=== PATIENT | male | born 1930 | race Caucasian/White ===

== ENCOUNTER 2016-12-13 11:13 | Inpatient (IN) | payer MEDICARE, OTHER ==
[~2016-12-13] VITALS: Ht 175.3 cm; Wt 88.7 kg
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
--- NOTE | ~2016-12-13 | CN ---
Consultation Report [facility] [address] [place]. [address] NAME: KLARISSA BRAVO : 31 STATUS : ADM IN PAT#: [id number] AGE: 86 ADM/REG DATE : 12/13/16 MR#: [id number] REPORT SERV DATE: 12/14/16 DICTATED BY: GEORGE SOLARES DATE: 12/13/16 REPORT STATUS : Draft TRANSCRIBED BY: SANTIAGO DATE: 12/13/16 INFECTIOUS DISEASE CONSULT DATE OF CONSULTATION: REASON FOR REFERRAL: Evaluation and treatment of possible leg cellulitis. HISTORY OF PRESENT ILLNESS: The patient is an 86-year-old male. He has a past medical history of atrial fibrillation, for which he is on chronic Coumadin. He has past arrhythmias, an AICD, coronary artery disease, congestive heart failure, hypertension, and hyperlipidemia. He bumped his left calf on a trailer hitch about two weeks ago. He said there was a small break in the skin. He had severe bruising, it began to swell and really turn red. He saw a local physician who gave him a dose of Rocephin and then started on cefuroxime which he is still on. 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 He is not having fevers, chills, malaise, or flu-like symptoms. He has not been draining purulent material. There are only two small abrasions on it. There has been no other trauma. No unusual environmental exposures. PAST MEDICAL HISTORY: Otherwise unremarkable. MEDICATIONS: As described above. ALLERGIES: HE IS ALLERGIC TO PENICILLIN, WHICH CAUSES A RASH. 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 He is . Nonsmoker. No history of alcohol or substance abuse. FAMILY HISTORY: Noncontributory. PHYSICAL EXAMINATION: GENERAL: Nontoxic, elderly male, in no acute distress. Alert and oriented x3. VITAL SIGNS: Temperature 98.6, pulse 67, respirations 18, blood pressure 130/66, and weight 195 pounds. HEENT: Sclerae clear. No oral lesions. NECK: Supple without lymphadenopathy. LUNGS: Clear. HEART: Regular. ABDOMEN: Soft, nontender. Positive bowel sounds. EXTREMITIES: The left calf is swollen, erythematous, some purplish discoloration with just two small shallow abrasions. It is more firm and indurated. It is slightly warm and difficult to tell whether it is simply hematoma or cellulitis. No other extremity skin or soft tissue lesions are noted. Consultation Report [facility] [address] [place]. [address] NAME: KLARISSA BRAVO : 32 STATUS : ADM IN PAT#: [id number] AGE: 86 ADM/REG DATE : 12/13/16 MR#: [id number] REPORT SERV DATE: 12/14/16 DICTATED BY: GEORGE SOLARES DATE: 12/13/16 REPORT STATUS : Draft TRANSCRIBED BY: SANTIAGO DATE: 12/13/16 LABORATORY DATA: His CBC shows a white blood cell count of 6.1, hematocrit 40.7, and platelets 211. BUN and creatinine 21 and 1.17. IMPRESSION: As stated earlier, this could seem to be a hematoma without any infection. I doubt if there is an abscess or deep infection. He has been evaluated for that now by Dr. Espino of Surgery. RECOMMENDATIONS: 1. We will cover with just Ancef now. 2. I think the most important thing is bedrest to help get the swelling down quicker and it will be easier to ascertain what is going on. Finally, I will follow the patient with you. I appreciate very much your consulting on this patient. JONATHAN George Solares M.D. / [id number] CC: Michael Mohan Jr, MD
--- NOTE | ~2016-12-13 | DS ---
Discharge Summary [facility] [address] [place]. [address] NAME: KLARISSA BRYANT : 32 STATUS : DIS IN PAT#: [id number] AGE: 86 ADM/REG DATE : 12/13/16 MR#: [id number] REPORT SERV DATE: 12/16/16 DICTATED BY: Vane BOWMAN DATE: 12/15/16 REPORT STATUS : Draft TRANSCRIBED BY: MODL DATE: 12/15/16 ADMISSION DATE: 12/13/2016 DISCHARGE DATE: 12/15/2016 The patient was admitted to the Hospitalist Service. CONSULTANTS: Dr. Lalit Gomez, Infectious Disease; Dr. Thor Espino, General Surgery; and Wound Care. DISCHARGE DIAGNOSES: 1. Left lower extremity cellulitis with left lower extremity wound. 2. Chronic atrial fibrillation, on chronic warfarin. 3. Chronic systolic heart failure and ischemic cardiomyopathy. 4. Obstructive sleep apnea. 5. Gastroesophageal reflux disease. 6. Benign prostatic hyperplasia. PROCEDURES: On 12/15/2011, the patient underwent a debridement of the ulceration on his left lower extremity per Dr. Grigsby. IMAGING AND DIAGNOSTICS: 1. On 12/13/2016, left lower extremity CT scan without contrast revealed diffuse edema or inflammation within the subcu fat. No soft tissue fluid collections are identified. Calcified atherosclerosis and no evidence of acute left tibia/fibula abnormality. 2. On 12/13/2016, x-ray of the left leg reveals no evidence of acute left tibia/fibula abnormality. 3. On 12/14/2016, arterial duplex of bilateral lower extremities, no evidence of any high- grade arterial stenosis suggested by this exam, no evidence of arterial occlusion to lower extremities demonstrated by this exam. 4. 12/14/2016, venous reflux study revealed some minimal trace reflux in the common femoral veins bilaterally. The remainder of the exam demonstrates no DVT, no incompetent perforators, no significant reflux. Right superficial system has been removed with regard to the greater saphenous vein. Short saphenous vein not visualized. 5. Wound culture, left lower extremity, showed no growth at two days. 6. Blood culture x2 showed no growth at one day. DISCHARGE LABS: 1. On 12/15/2016, basic metabolic panel revealed a sodium of 141, potassium 4.2, chloride 104, BUN 24, creatinine 1.12. GFR 69. Glucose 106. Calcium 9.1, magnesium 2.2. 2. Discharge CBC revealed a white count of 4.9, hemoglobin 12.5 hematocrit 39.1, platelets 201,000. INR 1.6. 3. A 12-lead EKG in the emergency room showed an atrial rhythm is atrial fibrillation, ventricular paced rhythm, abnormal EKG. When compared with EKG of 11/26/2015, no significant changes. Discharge Summary [address] [address] NAME: KLARISSA BRYANT : 32 STATUS : DIS IN PAT#: [id number] AGE: 86 ADM/REG DATE : 12/13/16 MR#: [id number] REPORT SERV DATE: 12/16/16 DICTATED BY: Vane BOWMAN DATE: 12/15/16 REPORT STATUS : Draft TRANSCRIBED BY: SANTIAGO DATE: 12/15/16 HISTORY OF PRESENT ILLNESS: For complete history, please refer to admission H and P by Dr. Xenia Carrillo. Briefly, Mr. Bryant is a pleasant 86-year-old man, who presented to the emergency room with complaints of pain, swelling, and redness in his left lower extremity. He states, a couple weeks ago, he hit his left leg on a trailer. He went to see a nurse practitioner in [place], [place], and they provided him with a prescription for some cefuroxime and he took it for seven days. However, his leg continued to cause him discomfort along with redness and swelling and two small areas of open ulcerations, weeping yellowish drainage. He was admitted to the Hospitalist Service for further evaluation and treatment. HOSPITAL COURSE: Mr. Bryant was admitted to cardiac telemetry floor on . Consults were placed to Infectious Disease and General Surgery. He was placed on bed rest with lower extremity leg elevation. He was provided with his home medications. Laboratory studies were ordered. Initially, CT scan of his left lower extremity along with venous Doppler studies were ordered. Please note that there was no DVT either in the left lower extremity. He was placed on cefepime IV as well as vancomycin IV for his draining wound. He was seen in consultation by Dr. Gomez, Infectious Disease, on his date of admission. He was also seen in consultation on the same day by Dr. Hira Espino. On the same day, Dr. Espino performed a debridement of the left lower extremity ulceration. I initially saw the patient on 12/14/2016. He was in no acute distress. Vital signs were stable. He did complain of some left lower extremity pain; however, since his admission, he reported that his swelling and redness had improved with elevation. On the morning of 12/15/2016, I again saw the patient, he was in no acute distress, stated he felt better. His was at his bedside. They both agreed that his left leg looked much better since admission. Dr. Gomez saw the patient earlier this morning and stated that he was fine with the patient going home on oral antibiotic. The patient's vital signs were stable. He was afebrile. Blood pressure 140/66, heart rate 69. He was in a paced rhythm per phototypesetting equipment monitor. He did have a trace of left ankle edema. His wound culture showed no growth at two days. Dr. Grigsby did see the patient later in the afternoon and agreed that he could be discharged home safely with home health care for wound care. Therefore, on the late afternoon of 12/15/2016, Mr. Bryant was discharged home in stable condition. Prior to his discharge, however, he did receive 4 mg of warfarin for his subtherapeutic INR of 1.6. DISCHARGE INSTRUCTIONS: 1. Diet: As tolerated. 2. Activity: We have asked Mr. Bryant to elevate his legs whenever in a sitting or recumbent position. 3. Discharge Medications:. a. Combigan ophthalmic eye drops one drop left eye twice a day. b. Carvedilol 3.125 mg p.o. b.i.d. c. Proscar 5 mg p.o. daily at bedtime. d. Lasix 40 mg p.o. daily. e. Nexium 20 mg p.o. daily in the morning. f. Flomax 0.4 mg p.o. daily at bedtime. g. Silvadene cream to his left lower extremity daily. h. Coumadin, again he is taking 4 mg today on 12/15/2016, and we will resume his home dose Coumadin 3 mg p.o. daily starting tomorrow. Discharge Summary [facility] [id number] [facility] [place] [address] NAME: KLARISSA BRYANT : 32 STATUS : DIS IN PAT#: [id number] AGE: 86 ADM/REG DATE : 12/13/16 MR#: [id number] REPORT SERV DATE: 12/16/16 DICTATED BY: Vane BOWMAN DATE: 12/15/16 REPORT STATUS : Draft TRANSCRIBED BY: SANTIAGO DATE: 12/15/16 i. Potassium 20 mEq p.o. daily. j. Travatan eye drops one drop in left eye daily. k. Nitroglycerin 0.4 mg p.o. p.r.n. chest pain. l. CoQ10 one tablet p.o. daily. m. Vitamin B12 one tablet p.o. daily. n. Tylenol one tablet p.o. p.r.n. o. Prescription for Septra DS one p.o. b.i.d. x7 days. Other discharge instructions include, Mr. Bryant will have home health care for wound care. They will apply a thin coat of Silvadene cream to the left leg daily. Thin coat from his entire ayala from knee to ankle. Acticoat will be placed on ulcers on his left lower extremity and the entire leg will be wrapped with Kerlix and keep his legs elevated as much as possible. Mr. Bryant will follow up with his new primary care provider, Dr. Bullock on 01/04/2017 at 9:45. He will also follow up with Dr. Grigsby in the Wound Center on 01/29/2017 at 1 p.m., and again he will have [facility] for wound care. In addition, Mr. Bryant has a previously arranged appointment to see Dr. Grajeda on Tuesday. He will have his INR checked at this office visit. My collaborating physician on this patient was Dr. Kvng Bowman. JOANN/SANTIAGO SIXTO Lugo Vane Bowman M.D. / [id number] CC: Kalyn Calabrese M.D. Robert Barnett III, M.D.
--- NOTE | ~2016-12-13 | OP ---
Record Of Operation [facility] [address] [place]. [address] NAME: KLARISSA BRAVO : 32 STATUS : ADM IN PAT#: [id number] AGE: 86 ADM/REG DATE : 12/13/16 MR#: [id number] REPORT SERV DATE: 12/14/16 DICTATED BY: VALENTINE ESPINO III DATE: 12/13/16 REPORT STATUS : Draft TRANSCRIBED BY: MODL DATE: 12/13/16 DATE OF PROCEDURE: PROCEDURE: Debridement of ulceration, left lower extremity. PREOPERATIVE DIAGNOSIS: Trauma with ulcerations and cellulitis of left lower extremity. POSTOPERATIVE DIAGNOSIS: Trauma with ulcerations and cellulitis of left lower extremity. ANESTHESIA: 2% lidocaine jelly. The time-out was performed and procedure concluded without difficulty. The patient was prepped in routine fashion with povidone iodine and the area of ulcerations in the upper and lower left extremity lateral aspect just lateral to the ayala was approached and a pickup and scissors used to carefully debride the tissues and the superficial ulcerations. No pus was encountered, and the slough was fairly thick and white to yellowish color. Swab cultures were obtained by inserting the slough into the culture tube along with the culture swab. This was done with two different cultures combining the two different ulcer sloughs. The postop dimension of the upper ulcer was 1.9 x 0.8 x 0.1 depth. The lower ulcer was 1.8 x 1.2 with a 0.1 depth. Culture and sensitivity ordered for aerobic and fungal analysis with sensitivities as indicated. We will continue with therapy on the patient with Silvadene cream to the leg topically and Acticoat to the individual ulcerations with elevation and gentle Kerlix wrapping. RB/SANTIAGO Valentine Espino III, M.D. / [id number] CC: Michael Mohan Jr, MD
[~2016-12-13 11:13] MED LIST: ACIPHEX PO; ANTIVERT PO; ASAB PO; AZOPT OPH; B12250T PO; C1 PO; C25 PO; C5 PO; CO Q-1050 MG PO; CO Q-1075 MG PO; COMBIGAN; COMBIGAN0.2 MG/0.5 OPH; COMBIVENT INH; COQ-1075 MG OR; CORDARONE PO; COREG3 PO; CRESTOR10 PO; DRAMAMINE25 MG PO; FLOMAX4 PO; FOLIC PO; ISOSORBIDE PO; K-TABS10 MEQ PO; KLOR-CON 1010 MEQ PO; KLOR-CON M1010 MEQ PO; L20 PO; L40 PO; MCZ125 PO; MURO1285% OPH; NEXIUM40 PO; NITROSTAT0.4 MG SL; PACERONE100 MG PO; PRILO PO; PROSCAR5 PO; TRAVATAN; TRAVATAN OPH; TRAVATAN Z0.004 % OPH; VITAMIN B-121000 MC1 SL; Vitamin B-12 PO; [UNRECOGNIZED DRUG - OTHER]
[2016-12-13 11:54] LABS: BASOPHILS 0.2 %; BASOPHILS ABSOLUTE 0.01 10/3/uL (0.0-0.16); EOSINOPHILS ABSOLUTE 0.06 10/3/uL (0.0-0.53); HEMATOCRIT 40.7 % (40.0-51.0); HEMOGLOBIN 12.9 g/dL (13.6-17.8); IMMATURE GRANULOCYTES 0.2 %; IMMATURE GRANULOCYTES ABSOLUTE 0.01 10/3/uL (0.0-0.11); LYMPHOCYTES 15.4 %; LYMPHOCYTES ABSOLUTE 0.94 10/3/uL (0.67-4.30); MANUAL DIFF NO %; MEAN CORPUS HGB CONC 31.7 g/dL (32.0-36.0); MEAN CORPUSCULAR HEMOGLOB 29.1 pg (26.0-34.0); MEAN CORPUSCULAR VOLUME 91.7 fL (80-100); MEAN PLATELET VOLUME 8.4 fL (9.2-13.0); MONOCYTES 7.5 %; MONOCYTES ABSOLUTE 0.46 10/3/uL (0.21-1.20); NEUTROPHILS 75.7 %; NEUTROPHILS ABSOLUTE 4.64 10/3/uL (2.02-8.40); PLATELET COUNT 211 10/3/uL (150-400); RBC DISTRIBUTION WIDTH 14.6 % (12.0-16.0); RED CELL COUNT 4.44 10/6/uL (4.7-6.1); WHITE BLOOD CELLS 6.1 10/3/uL (4.5-10.5)
[2016-12-13 12:01] LABS: PARTIAL THROMBO TIME 31.7 SEC (22.5-37.2)
[2016-12-13 12:02] LABS: INTERNATIONAL NORMAL RATI 1.7 UNITS (-); PROTIME (NOT ORD) 20.1 SEC (12.0-14.5)
[2016-12-13 12:09] LABS: A/G RATIO 0.9 (0.7-1.9); ALBUMIN 3.4 G/DL (3.5-5.0); ALKALINE PHOSPHATASE 94 U/L (45-117); BUN (BLOOD UREA NITROGEN) 21 MG/DL (6-23); CALCIUM, SERUM 9.1 MG/DL (8.5-10.4); CHLORIDE, SERUM 103 MMOL/L (96-112); CO2 (CARBON DIOXIDE) 33 MMOL/L (24-34); CREATININE 1.17 MG/DL (0.70-1.30); GFR AFRICAN AMERICAN 65 ML/MIN (>=60); GFR NON AFRICAN AMERICAN 57 ML/MIN (>=60); GLOBULIN 3.8 G/DL (2.5-4.1); GLUCOSE, SERUM 81 MG/DL (60-99); POTASSIUM, SERUM 4.4 MMOL/L (3.5-5.3); SGOT(AST) 26 U/L (5-40); SGPT(ALT) 36 U/L (5-65); SODIUM, SERUM 140 MMOL/L (135-148); TOTAL BILIRUBIN 0.5 MG/DL (0-1.2); TOTAL PROTEIN 7.2 G/DL (6.0-8.5)
[2016-12-13] MEDS ORDERED: CEFT5 PO (12:55)
[2016-12-13] MEDS ORDERED: COREG3 PO (12:57)
[2016-12-13] MEDS ORDERED: COUMADIN3 MG PO (12:57)
[2016-12-13] MEDS ORDERED: L40 PO (12:58)
[2016-12-13] MEDS ORDERED: COMBIGAN0.2 MG/0.5 OPH (12:58)
[2016-12-13] MEDS ORDERED: KLOR-CON M2020 MEQ PO (12:58)
[2016-12-13] MEDS ORDERED: TRAVATAN Z 0.004% OPH (12:59)
[2016-12-13] MEDS ORDERED: NITROSTAT0.4 MG PO (12:59)
[2016-12-13] MEDS ORDERED: FLOMAX4 PO (13:00)
[2016-12-13] MEDS ORDERED: PROSCAR5 PO (13:00)
[2016-12-13] MEDS ORDERED: NEXIUM20 M1 PO (13:01)
[2016-12-13] MEDS ORDERED: TYLENOL OTC PO (13:13)
[2016-12-13] MEDS ORDERED: COQ-10 PO (13:13)
[2016-12-13] MEDS ORDERED: VITAMIN B-12 PO (13:13)
[2016-12-13] MEDS ORDERED: NEO-OINT15 TOP (13:14)
[2016-12-13 16:38] LABS: PROCALCITONIN <0.05 ng/mL (<0.5)
[2016-12-14 05:32] LABS: INTERNATIONAL NORMAL RATI 1.8 UNITS (-); PROTIME (NOT ORD) 20.6 SEC (12.0-14.5)
[2016-12-14 05:41] LABS: BASOPHILS 0.2 %; BASOPHILS ABSOLUTE 0.01 10/3/uL (0.0-0.16); EOSINOPHILS 2.4 %; EOSINOPHILS ABSOLUTE 0.14 10/3/uL (0.0-0.53); HEMATOCRIT 37.6 % (40.0-51.0); HEMOGLOBIN 12.3 g/dL (13.6-17.8); IMMATURE GRANULOCYTES 0.3 %; IMMATURE GRANULOCYTES ABSOLUTE 0.02 10/3/uL (0.0-0.11); LYMPHOCYTES 21.1 %; LYMPHOCYTES ABSOLUTE 1.24 10/3/uL (0.67-4.30); MEAN CORPUS HGB CONC 32.7 g/dL (32.0-36.0); MEAN CORPUSCULAR VOLUME 91.7 fL (80-100); MEAN PLATELET VOLUME 8.3 fL (9.2-13.0); MONOCYTES 9.4 %; MONOCYTES ABSOLUTE 0.55 10/3/uL (0.21-1.20); NEUTROPHILS 66.6 %; NEUTROPHILS ABSOLUTE 3.92 10/3/uL (2.02-8.40); PLATELET COUNT 201 10/3/uL (150-400); RBC DISTRIBUTION WIDTH 14.4 % (12.0-16.0); WHITE BLOOD CELLS 5.9 10/3/uL (4.5-10.5)
[2016-12-14 05:42] LABS: MANUAL DIFF NO %
[2016-12-14 05:43] LABS: CALCIUM, SERUM 9.5 MG/DL (8.5-10.4); CHLORIDE, SERUM 102 MMOL/L (96-112); CO2 (CARBON DIOXIDE) 33 MMOL/L (24-34); CREATININE 1.11 MG/DL (0.70-1.30); GFR AFRICAN AMERICAN 70 ML/MIN (>=60); GFR NON AFRICAN AMERICAN 60 ML/MIN (>=60); POTASSIUM, SERUM 4.8 MMOL/L (3.5-5.3); PREALBUMIN 19.4 MG/DL (17.0-43.0); SODIUM, SERUM 139 MMOL/L (135-148)
[2016-12-14 05:45] LABS: BUN (BLOOD UREA NITROGEN) 28 MG/DL (6-23); GLUCOSE, SERUM 115 MG/DL (60-99)
[2016-12-15 07:01] LABS: BASOPHILS 0.2 %; BASOPHILS ABSOLUTE 0.01 10/3/uL (0.0-0.16); EOSINOPHILS 1.8 %; EOSINOPHILS ABSOLUTE 0.09 10/3/uL (0.0-0.53); HEMATOCRIT 39.1 % (40.0-51.0); HEMOGLOBIN 12.5 g/dL (13.6-17.8); IMMATURE GRANULOCYTES 0.2 %; IMMATURE GRANULOCYTES ABSOLUTE 0.01 10/3/uL (0.0-0.11); LYMPHOCYTES 23.1 %; LYMPHOCYTES ABSOLUTE 1.13 10/3/uL (0.67-4.30); MANUAL DIFF NO %; MEAN CORPUSCULAR HEMOGLOB 29.1 pg (26.0-34.0); MEAN CORPUSCULAR VOLUME 90.9 fL (80-100); MEAN PLATELET VOLUME 8.6 fL (9.2-13.0); MONOCYTES 10.4 %; MONOCYTES ABSOLUTE 0.51 10/3/uL (0.21-1.20); NEUTROPHILS 64.3 %; NEUTROPHILS ABSOLUTE 3.14 10/3/uL (2.02-8.40); PLATELET COUNT 201 10/3/uL (150-400); RBC DISTRIBUTION WIDTH 14.5 % (12.0-16.0); WHITE BLOOD CELLS 4.9 10/3/uL (4.5-10.5)
[2016-12-15 07:11] LABS: CALCIUM, SERUM 9.1 MG/DL (8.5-10.4); CHLORIDE, SERUM 104 MMOL/L (96-112); CO2 (CARBON DIOXIDE) 31 MMOL/L (24-34); CREATININE 1.12 MG/DL (0.70-1.30); GFR AFRICAN AMERICAN 69 ML/MIN (>=60); GFR NON AFRICAN AMERICAN 60 ML/MIN (>=60); GLUCOSE, SERUM 106 MG/DL (60-99); POTASSIUM, SERUM 4.2 MMOL/L (3.5-5.3); SODIUM, SERUM 141 MMOL/L (135-148)
[2016-12-15 07:12] LABS: BUN (BLOOD UREA NITROGEN) 24 MG/DL (6-23)
[2016-12-15 07:14] LABS: INTERNATIONAL NORMAL RATI 1.6 UNITS (-)
[2016-12-15] MEDS ORDERED: SILVADENE1 % TOP (17:04)
[2016-12-15] MEDS ORDERED: SEPTRA DS1 TAB PO (17:04)
== END 2016-12-15 18:04 | disposition home health service (06) | DRG 571 ==
LOC: ER 11:13 → 1SO 12:45
PROVIDERS: Hospitalist; Nurse Practitioner; Nurse Practitioner Acute Care
PROC: 0JBP0ZZ Excision of Left Lower Leg Subcutaneous Tissue and Fascia, Open Approach (ICD-10-PCS; principal; 2016-12-13)
DX: L03.116 Cellulitis of left lower limb (principal); L97.929 Non-pressure chronic ulcer of unspecified part of left lower leg with unspecified severity; I50.22 Chronic systolic (congestive) heart failure; I11.0 Hypertensive heart disease with heart failure; I48.2 Chronic atrial fibrillation; G47.33 Obstructive sleep apnea (adult) (pediatric); N40.0 Benign prostatic hyperplasia without lower urinary tract symptoms; I87.8 Other specified disorders of veins; E78.5 Hyperlipidemia, unspecified; I25.5 Ischemic cardiomyopathy; K21.9 Gastro-esophageal reflux disease without esophagitis; W22.09XA Striking against other stationary object, initial encounter; Z79.01 Long term (current) use of anticoagulants; Z79.899 Other long term (current) drug therapy; Z90.49 Acquired absence of other specified parts of digestive tract; Z95.810 Presence of automatic (implantable) cardiac defibrillator; Z88.0 Allergy status to penicillin; Z88.5 Allergy status to narcotic agent
CPT/HCPCS: 73590-LT; 73700-LT; 80048; 80053; 83036; 83735; 84134; 84145; 84443; 85025; 85610; 85730; 87040; 87070; 87075; 87102; 87205; 93005; 93925; 93970; 96374; 99284; A9270-GY; J3370